=== PATIENT | female | born 1995 | race Caucasian/White ===

== ENCOUNTER 2018-02-14 16:25 | Emergency (ER) | payer BC, MEDICAID ==
[2018-02-14 17:08] VITALS: BP 128/73
--- NOTE | 2018-02-14 17:18 | UC ---
Throat Pain/Nasal Wilberto HPI - HPI Summary HPI Summary: C/O sore throat x 2 days with no coughing/ wheezing or sinus pain. Has allergic congestion all the time. - History of Current Complaint Chief Complaint: UCGeneralIllness Stated Complaint: SORE THROAT Hx Obtained From: Patient Hx Last Menstrual Period: unknown, oral bcp ?: No Onset/Duration: Sudden Onset, Lasting Days - 2, Worse Since - onset Severity: Moderate Pain Intensity: 8 Cough: None Associated Signs & Symptoms: Positive: Dysphagia, Nasal Discharge Related History: Seasonal Allergies - Allergies/Home Medications Allergies/Adverse Reactions: Allergies Allergy/AdvReac Type Severity Reaction Status Date / Time sulfamethoxazole Allergy Hives Verified 02/14/18 17:05 [From Bactrim] trimethoprim [From Bactrim] Allergy Hives Verified 02/14/18 17:05 Home Medications: Home Medications Ethinyl Estradiol/Drospirenone [Deanna 28 Tablet] 1 each PO DAILY 02/14/18 [ History Confirmed 02/14/18] PMH/Surg Hx/FS Hx/Imm Hx Respiratory History: Asthma - exercise induced Other History Of: Negative For: HIV, Hepatitis B, Hepatitis C - Surgical History Surgical History: Yes Surgery Procedure, Year, and Place: RIGHT ANKLE. EAR TUBES - Family History Known Family History: Positive: Diabetes Negative: Cardiac Disease, Hypertension, Renal Disease, Blood Disorder - Social History Occupation: Employed Full-time Lives: With Family Alcohol Use: Weekly Substance Use Type: None Smoking Status (MU): Never Smoked Tobacco Review of Systems All Other Systems Reviewed And Are Negative: Yes Constitutional: Positive: Chills ENT: Positive: Sore Throat, Nasal Discharge Is Patient Immunocompromised?: No Physical Exam Triage Information Reviewed: Yes Appearance: No Pain Distress, Well-Nourished, Ill-Appearing Vital Signs: Initial Vital Signs Temp 98.2 F 02/14/18 17:05 Pulse 105 02/14/18 17:05 Resp 16 02/14/18 17:05 BP 128/73 02/14/18 17:05 Pulse Ox 100 02/14/18 17:05 Vital Signs Reviewed: Yes Eyes: Positive: Conjunctiva Clear ENT: Positive: Pharynx normal, Nasal congestion - with allergic changes, TMs normal Neck: Positive: No Lymphadenopathy Respiratory: Positive: Wheezing - occasional end expiratory wheeze Cardiovascular Exam: Normal Musculoskeletal Exam: Normal Neurological Exam: Normal Psychological Exam: Normal Skin Exam: Normal Diagnostics - Laboratory Diagnostic Studies Completed/Ordered: Rapid strep = Negative Throat Pain/Nasal Course/Dx - Differential Dx/Diagnosis Differential Diagnosis/HQI/PQRI: Peritonsillar Abscess, Pharyngitis, URI Provider Diagnosis: Upper respiratory infection, Bronchospasm, acute Discharge - Sign-Out/Discharge Documenting (check all that apply): Patient Departure All imaging exams completed and their final reports reviewed: No Studies - Discharge Plan Condition: Stable Disposition: HOME Prescriptions: predniSONE TAB* [Deltasone 20 MG TAB*] 60 mg PO DAILY #18 tab Patient Education Materials: Upper Respiratory Infection (ED), Wheezing (ED), Prednisone (By mouth) Referrals: Ronnie Chand [Primary Care Provider] - Additional Instructions: NEILMED SINUS RINSE: CHECK OUT AT [facility] Saline nasal wash helps with mucous, allergies and congestion. It can be used up to twice a day or only as needed. Use lukewarm tap water. It does not have to be sterilized or distilled water. Do 1/3 on each side and snort out of both nostrils. Repeat the process with 1/6 of the bottle on each side with snorting in between to finish the solution in the bottle - Billing Disposition and Condition Condition: STABLE Disposition: Home
== END 2018-02-14 17:35 | disposition home or self-care (01) ==
LOC: UCCORT 16:25
DX: J06.9 Acute upper respiratory infection, unspecified (principal); J98.01 Acute bronchospasm; Z88.1 Allergy status to other antibiotic agents
CPT/HCPCS: 87651; 99212; G0463